=== PATIENT | female | born 1970 ===

== ENCOUNTER → 2024-07-23 17:48 | Outpatient (CLI) | payer SELFPAY | PROVIDERS: PCP Family Medicine; Referring Provider Internal Medicine; Visit Provider Internal Medicine | DX: Z23 Encounter for immunization (principal) | CPT/HCPCS: 90471; 90656 ==

== ENCOUNTER → 2024-09-25 07:00 | Outpatient (CLI) | payer OTHER, SELFPAY ==
[2024-09-25 07:49] LABS: Add Manual Diff / Slide Review NO; Basophils Absolute Auto 0 /uL (0-100); Basophils Percent Auto 0.6 % (0-2); Eosinophils Absolute Auto 100 /uL (0-450); Hematocrit 42.9 % (36-46); Hemoglobin 14.6 g/dL (12.0-16.0); Lymphocytes Absolute Auto 1100 /uL (1100-4500); Mean Corpuscular HGB Conc 33.9 % (30-36); Mean Corpuscular Hemoglobin 31.5 PG (26-34); Mean Corpuscular Volume 92.8 fL (80-100); Monocytes Absolute Auto 300 /uL (0-900); Monocytes Percent Auto 7.7 % (3-14); Neutrophils Absolute Auto 2800 /uL (1500-7000); Neutrophils Percent Auto 64.7 % (50-75); Platelet Count 276 X10^3/uL (150-400); Red Blood Cell Count 4.63 X10^6/uL (4.0-5.2); Red Cell Distribution Width 13.3 % (11.6-14.8); White Blood Cell Count 4.4 X10^3/uL (4.5-11.0)
[2024-09-25 08:28] LABS: Alanine Aminotransferase 27 IU/L (<35); Albumin 4.8 g/dL (3.5-5.0); Albumin Globulin Ratio 1.9 (1.0-2.8); Alkaline Phosphatase 98 U/L (38-126); Aspartate Aminotransferase 26 IU/L (14-36); Bilirubin Total 0.6 mg/dL (0.2-1.3); Blood Urea Nitrogen 17 mg/dL (7-17); Calcium 10.1 mg/dL (8.4-10.2); Carbon Dioxide 27 mmol/L (22-32); Chloride 106 mmol/L (98-107); Cholesterol 295 mg/dL (140-199); Estimated Glomerular Filt Rate 54 mL/min (>60); Globulin 2.5 g/dL (1.7-4.1); Glucose 98 mg/dL (70-100); HDL Cholesterol 71 mg/dL (40-60); HEMOLYSIS < 15 (0-50); LDL Cholesterol Calculated 199 mg/dL (<100); Sodium 139 mmol/L (137-145); Total Protein 7.3 g/dL (6.3-8.2); Triglycerides 123 mg/dL (35-150)
[2024-09-25 08:52] LABS: TSH w/ Reflex to FT4 1.89 uIU/mL (0.47-4.68)
== END ==
PROVIDERS: PCP Family Medicine; Referring Provider Family Medicine; Visit Provider Family Medicine
DX: Z13.6 Encounter for screening for cardiovascular disorders (principal); R63.5 Abnormal weight gain
CPT/HCPCS: 36415; 80053; 80061; 84443; 85025

== ENCOUNTER → 2024-11-06 12:40 | Outpatient (CLI) | payer OTHER, SELFPAY ==
--- NOTE | 2024-11-06 15:53 | DIET.OUTPTC ---
Dietary Outpatient Consultation Note Consultation Date: 11/06/2024 Assessment: 54 y F referred to dietitian for abnormal weight gain. Patient reports would like to review healthy eating and portion sizes for weight management. Recently started statin d/t lipid results in Sep 2024 - chol 295, LDL 199, HDL 71. Will start metformin d/t weight gain. Has had chronic constipation with 2 BMs per week. Takes 2 different laxatives, reports Linzess is better than other medications she has tried, but does not resolve constipation. Has tried increasing fruit intake but no change in stools. Is unsure if when she increased fruit intake how long increased intake was maintained for (i.e 1-2 days over multiple weeks). Has referral to GI. Eats oatmeal+ banana or split soup soup and gets abd cramping and bloating that last day or more. Suspects it is the banana over oatmeal causing cramping. Denies N/V. Per EMR review, last PCP report says pt smoking 5-6 cigarettes per day. Diet recall: B-yogurt (~1c) (with 1/2 cup of grape nuts x2/wk) or cottage cheese or eggs L-deli sandwich with 1 sl angolan cheese on wheat bread with ~1c fruit/veggie (carrots) D-doesn't eat dinner, gets home from work at 6:30 and reports if she eats that late she experiences disruptions in sleep (i.e. waking up in night and being unable to fall asleep) Fluids: 40 oz/day Estimate 8-15 grams fiber/day. Notes she reports being pretty hungry in the evening and a few hours after breakfast. Based on diet recall, dietary intake is not sufficient to meet energy needs nor provide adequate fiber intake to meet 25-28 g/day Activity: rides bike and walks on weekend Ht: 5 ft 7 in Wt: 168 lb 2 oz BMI: 26.3 UBW: 165 lb and 2 oz on 06/29/24 174 lb on 10/22/24 168 lb and 2 oz on 10/25/24 Nutrition Diagnosis: Inadequate fiber intake r/t nutrition related knowledge deficit aeb diet recall with 8-15 g/day Interventions: discussed and provided handouts for the following -Balanced meals in line with myplate method/med eating style, macros, portion sizes, adequate PO intakes -Fiber, types, recc amount, food sources -Lab values -Fluids -Briefly touched on intuitive eating -plan to discuss further along with hunger fullness scale Goals: reports 10 on [place] confidence scale -increasing fiber by +4 grams daily every 1-2 weeks consistently until reaching total fiber intake 25-28 grams/day. Discussed multiple options to start adding to breakfast. Monitor for abd cramping and bloating. -Switching water bottle to 32-36 oz bottle at home and doing 2 per day for 64-72 oz -Having portioned out leftovers around 3p EER: 25-28 g fiber/day, 70-80 oz fluids Monitoring/Evaluations: f/u 4 weeks Electronically Signed by: Griselda Robbins 11/06/24 15:53 Clinical Dietitian [address] [address]
== END ==
PROVIDERS: PCP Family Medicine; Referring Provider Family Medicine
DX: R63.5 Abnormal weight gain (principal); K59.00 Constipation, unspecified; Z71.3 Dietary counseling and surveillance; Z68.26 Body mass index [BMI] 26.0-26.9, adult
CPT/HCPCS: 97802

== ENCOUNTER 2024-11-19 06:54 | Day surgery (SDC) | payer OTHER, SELFPAY ==
[2024-11-19] MEDS: ONDANSETRON 4 MG/2 ML INJ IV (07:35)
[2024-11-19 07:36] VITALS: BP 122/76; PULSE 79; RESP 20; TEMP 36.7; O2SAT 97
[2024-11-19] MEDS: LACTATED RINGERS 1,000 ML 42 ML IV (08:00)
--- NOTE | 2024-11-19 08:09 | PM.HP.IH.1 ---
History of Present Illness History of Present Illness Date Patient Seen: 11/19/24 Time Patient Seen: 08:10 Chief complaint: Screening Colonoscopy Narrative: 54-year-old white female presents for screening colonoscopy. History anxiety, intermittent constipation. ON LICENSE OF [facility] Medical History (Updated 11/19/24 @ 08:11 by Ignacio Waldron MD) Colon cancer screening (11/19/24) Tobacco use disorder Generalized anxiety disorder with panic attacks MDD (major depressive disorder), recurrent severe, without psychosis Surgical History History of hysterectomy History of tonsillectomy History of cholecystectomy History of knee surgery History of shoulder surgery Social History Smoking Status: Current every day smoker alcohol intake: never Meds Home Medications and Allergies Home Medications Medication Instructions Recorded Confirmed Type bupropion HCl 150 mg 24 hr tablet, 300 mg PO QAM 08/30/24 10/31/24 History extended release cetirizine 10 mg capsule (Zyrtec) 10 mg PO DAILY PRN 08/30/24 10/25/24 History cholecalciferol (vitamin D3) 50 50 mcg PO DAILY 08/30/24 10/25/24 History mcg (2,000 unit) capsule escitalopram oxalate 20 mg tablet 20 mg PO DAILY 08/30/24 10/31/24 History (Lexapro) melatonin 10 mg tablet 10 mg PO BEDTIME PRN 08/30/24 10/25/24 History atorvastatin 20 mg tablet 20 mg PO DAILY #30 tabs 09/27/24 10/25/24 Rx quetiapine 300 mg tablet 600 mg (2 x 300 mg) PO DAILY #60 09/27/24 10/31/24 Rx tabs gabapentin 600 mg tablet 1,800 mg (3 x 600 mg) PO DAILY #90 10/01/24 10/31/24 Rx tabs lorazepam 1 mg tablet (Ativan) 1 mg PO DAILY PRN anxiety #30 tabs 10/01/24 10/31/24 Rx lidocaine 5 % topical ointment 1 applic topical TID #35.44 grams 10/22/24 10/25/24 Rx valacyclovir 1 gram tablet 1,000 mg PO Q8H #21 tabs 10/22/24 10/25/24 Rx linaclotide 290 mcg capsule 290 mcg PO DAILY #90 caps 10/25/24 10/25/24 Rx (Linzess) metformin 500 mg tablet,extended 500 mg PO DAILY #30 tabs 10/25/24 10/31/24 Rx release 24 hr nicotine (polacrilex) 2 mg gum 2 mg buccal Q2H PRN nicotine 10/31/24 10/31/24 Rx cravings #120 ea nicotine 14 mg/24 hr daily 1 patch transdermal DAILY #28 ea 10/31/24 10/31/24 Rx transdermal patch sodium,potassium,mag sulfates 17.5 See Rx Instructions PO .COMPLEX 11/09/24 Rx gram-3.13 gram-1.6 gram oral soln #354 mL (Suprep Bowel Prep Kit) Allergies Allergy/AdvReac Type Severity Reaction Status Date / Time ciprofloxacin [From Cipro] Allergy Mild Hives Verified 10/25/24 11:25 Review of Systems Review of Systems ROS: Yes All systems reviewed with the patient and are negative except as otherwise documented Exam Vital Signs (past 8 hours): - 11/19/24 07:36 Temperature 98.0 F Pulse Rate 79 Respiratory Rate 20 Blood Pressure 122/76 Pulse Oximetry 97 Oxygen Delivery Method Room Air Oxygen Delivery Method Room Air Narrative Exam Narrative: Gen: NAD, sitting comfortably in bed, appears well HEENT: Sclera are anicteric, head is normocephalic and atraumatic, trachea is midline. CV: RRR, no JVD Resp: clear to auscultation bilaterally, equal chest wall movement bilaterally Abd: soft, nontender, normoactive bowel sounds Ext: no edema, full range of motion Neuro: Cranial nerves II-XII grossly intact, no focal deficits Skin: No erythema or ecchymosis Assessment & Plan Assessment and plan (1) Colon cancer screening: Status: Acute Assessment & Plan narrative: Patient presents for colonoscopy Risks, benefits, alternatives to colonoscopy explained, including but not limited to bowel perforation or other serious complication requiring surgery at less than 1 in 5000 colonoscopies, abdominal pain, cramping or bleeding and less than 1% of colonoscopies, and the chances that we find a diagnosis that would require further intervention of about 2%. Patient agrees to proceed. Time-Based Coding :: [TOTAL MINUTES] spent with patient and on the chart (including review of chart, obtaining history, exam, reviewing outside data, placing orders, documenting exam and treatment plan, and counseling patient) on [DATE]. 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
--- NOTE | 2024-11-19 08:35 | P.OP.COLON_ITS ---
Operative Date/Time/Diagnoses Date of procedure: 11/19/24 Time of procedure: 08:35 Pre-op diagnosis: Colon screening Post-op diagnosis: same Procedure & Clinicians Study performed: Colonoscopy Same procedure as scheduled: Yes Indications: Colon screening Surgeon: Ignacio Waldron Procedure Notes SCOAP/Timeout: Performed Procedure in detail: Time-out was performed. Mac was induced. Patient was placed in left lateral d ecubitus position. The perineum was inspected without any gross abnormality. Lubricated pediatric colonoscope was inserted and advanced to the cecum. The terminal ileum was intubated. The colonoscope was withdrawn slowly inspecting the circumference of the colon. Very small polyps may have been missed, prep quality was adequate. Retroflexed view of the rectum showed small, non prolapsed nonbleeding internal hemorrhoids. The scope was withdrawn the patient was taken to PACU in good condition. Scope withdrawal time: 7 Sedation minutes: 16 Findings: internal hemorrhoids Specimen(s): none sent Complications: none Post-procedure Recommendations: Colonoscopy in 10 years Follow up: as needed Disposition: PACU
[2024-11-19 08:36] VITALS: BP 104/69; PULSE 75; RESP 16; TEMP 36.2; O2SAT 96
[2024-11-19 08:41] VITALS: BP 105/63; PULSE 71; RESP 14; O2SAT 94
[2024-11-19 08:47] VITALS: BP 103/64; PULSE 74; RESP 15; O2SAT 96
[2024-11-19 08:50] VITALS: BP 108/63; PULSE 68; RESP 16; TEMP 36.6; O2SAT 97
== END 2024-11-19 09:19 | disposition home or self-care (01) ==
PROVIDERS: PCP Family Medicine; Referring Provider Surgery; Visit Provider Surgery
PROC: 0DJD8ZZ Inspection of Lower Intestinal Tract, Via Natural or Artificial Opening Endoscopic (ICD-10-PCS; CPT 45378; principal; 2024-11-19 08:15)
DX: Z12.11 Encounter for screening for malignant neoplasm of colon (principal); K64.8 Other hemorrhoids
CPT/HCPCS: 45378; J2405; J2704

== ENCOUNTER → 2025-02-08 08:43 | Outpatient (CLI) | payer OTHER, SELFPAY ==
[2025-02-08 09:52] LABS: Add Manual Diff / Slide Review NO; Basophils Absolute Auto 0 /uL (0-100); Basophils Percent Auto 0.9 % (0-2); Eosinophils Absolute Auto 100 /uL (0-450); Eosinophils Percent Auto 1.5 % (2-4); Hematocrit 41.4 % (36-46); Hemoglobin 14.4 g/dL (12.0-16.0); Lymphocytes Absolute Auto 1200 /uL (1100-4500); Lymphocytes Percent Auto 27.8 % (25-40); Mean Corpuscular HGB Conc 34.8 % (30-36); Mean Corpuscular Hemoglobin 31.8 PG (26-34); Mean Corpuscular Volume 91.6 fL (80-100); Monocytes Absolute Auto 300 /uL (0-900); Monocytes Percent Auto 6.6 % (3-14); Neutrophils Absolute Auto 2700 /uL (1500-7000); Neutrophils Percent Auto 63.2 % (50-75); Platelet Count 254 X10^3/uL (150-400); Red Blood Cell Count 4.52 X10^6/uL (4.0-5.2); Red Cell Distribution Width 12.9 % (11.6-14.8); White Blood Cell Count 4.3 X10^3/uL (4.5-11.0)
[2025-02-08 09:57] LABS: Appearance Urine UA CLEAR; Bilirubin Urine UA NEGATIVE (NEGATIVE); Color Urine UA YELLOW; Glucose Urine UA NEGATIVE (Negative); Ketones Urine UA NEGATIVE (NEGATIVE); Leukocyte Esterase Urine UA NEGATIVE (NEGATIVE); Nitrite Urine UA NEGATIVE (Negative); Occult Blood Urine UA NEGATIVE (Negative); Protein Urine UA NEGATIVE (Negative); Specific Gravity Urine UA 1.015 (1.000-1.035); Urobilinogen Urine UA 0.2 E.U./dL (0.2)
[2025-02-08 10:01] LABS: pH Urine UA 5.5 (4.5-8.0)
[2025-02-08 10:04] LABS: Bacteria Urine Occasional (0-1); Culture Indicated Urine Cult Not Indicated; RBC Urine 0-1/HPF (0-5/HPF); Squamous Epithelial Cell Urine 0-1 /HPF (0-5/HPF); Urine Volume 10mL (spun); WBC Urine 0-1/HPF (0-5/HPF)
[2025-02-08 10:09] LABS: Creatinine Urine Random 81.41 mg/dL; Hemoglobin A1C% w Est Avg Glu 5.2 % (4.0-6.0)
[2025-02-08 10:14] LABS: Microalbumin Urine Random 0.7 mg/dL (0-1.6)
[2025-02-08 10:33] LABS: Alanine Aminotransferase 16 IU/L (<35); Albumin 4.8 g/dL (3.5-5.0); Albumin Globulin Ratio 2.1 (1.0-2.8); Alkaline Phosphatase 72 U/L (38-126); Aspartate Aminotransferase 23 IU/L (14-36); BUN Creatinine Ratio 15.6 (6-22); Bilirubin Total 0.6 mg/dL (0.2-1.3); Blood Urea Nitrogen 15 mg/dL (7-17); Calcium 10.3 mg/dL (8.4-10.2); Carbon Dioxide 27 mmol/L (22-32); Chloride 105 mmol/L (98-107); Estimated Glomerular Filt Rate > 60 mL/min (>60); Globulin 2.3 g/dL (1.7-4.1); Glucose 87 mg/dL (70-99); HEMOLYSIS < 15 (0-50); Potassium 4.7 mmol/L (3.4-5.1); Sodium 140 mmol/L (137-145); Total Protein 7.1 g/dL (6.3-8.2)
== END ==
PROVIDERS: PCP Family Medicine; Referring Provider Family Medicine; Visit Provider Family Medicine
DX: E78.5 Hyperlipidemia, unspecified (principal); N17.9 Acute kidney failure, unspecified; K59.00 Constipation, unspecified; R63.5 Abnormal weight gain
CPT/HCPCS: 36415; 80053; 81001; 82043; 82570; 83036; 85025

== ENCOUNTER → 2025-02-22 12:26 | Outpatient (CLI) | payer OTHER, SELFPAY ==
--- NOTE | 2025-02-22 12:27 | DI.MG.S_ITS ---
MM screening mammo BI: 02/22/2025. BI-RADS: 2 CLINICAL: 54-year old female for bilateral screening mammogram. Tyrer-Cuzick lifetime risk of 19.4%. No personal or first-degree family history of breast cancer. Current reported family history of breast cancer: maternal grandmother. The patient had prior bilateral breast biopsies. PRIOR EXAMS 08/27/2022. MAMMOGRAPHY TECHNIQUE: 2D and 3D (tomosynthesis) digital mammographic views obtained, with additional images as needed for full coverage. Current study was also evaluated with a Computer Aided Detection (CAD) system. DENSITY C. The breasts are heterogeneously dense, which may obscure small masses. MAMMOGRAPHY FINDINGS Bilateral: Benign-appearing post-surgical changes noted. There are no suspicious masses, calcifications, or other findings in the breast. IMPRESSION: * No evidence of malignancy with benign findings. RECOMMENDATIONS Bilateral * Annual screening mammography. OVERALL ASSESSMENT CATEGORY BI-RADS-2: Benign. [employer] recommends annual screening mammography beginning at age 40 for women with average risk of breast cancer. ELECTRONICALLY SIGNED: Lucia Anderson M.D. on 02/25/2025 at 12:48:24 AM PT Interpreting Station ID: [id number]
== END ==
PROVIDERS: PCP Family Medicine; Referring Provider Family Medicine; Visit Provider Family Medicine
DX: Z12.31 Encounter for screening mammogram for malignant neoplasm of breast (principal); R92.333 Mammographic heterogeneous density, bilateral breasts; Z80.3 Family history of malignant neoplasm of breast
CPT/HCPCS: 77063; 77067

== ENCOUNTER → 2025-03-22 09:48 | Outpatient (CLI) | payer OTHER, SELFPAY ==
[2025-03-22 10:45] LABS: Add Manual Diff / Slide Review NO; Basophils Absolute Auto 0 /uL (0-100); Eosinophils Absolute Auto 100 /uL (0-450); Eosinophils Percent Auto 1.9 % (2-4); Hematocrit 43.1 % (36-46); Hemoglobin 14.7 g/dL (12.0-16.0); Lymphocytes Absolute Auto 1200 /uL (1100-4500); Lymphocytes Percent Auto 30.8 % (25-40); Mean Corpuscular Hemoglobin 31.4 PG (26-34); Mean Corpuscular Volume 92.4 fL (80-100); Monocytes Absolute Auto 200 /uL (0-900); Monocytes Percent Auto 6.2 % (3-14); Neutrophils Absolute Auto 2400 /uL (1500-7000); Neutrophils Percent Auto 60.1 % (50-75); Platelet Count 233 X10^3/uL (150-400); Red Blood Cell Count 4.67 X10^6/uL (4.0-5.2); Red Cell Distribution Width 13.1 % (11.6-14.8)
[2025-03-22 11:12] LABS: Alanine Aminotransferase 13 IU/L (<35); Albumin 4.6 g/dL (3.5-5.0); Albumin Globulin Ratio 1.8 (1.0-2.8); Alkaline Phosphatase 71 U/L (38-126); Aspartate Aminotransferase 22 IU/L (14-36); BUN Creatinine Ratio 15.7 (6-22); Bilirubin Total 0.6 mg/dL (0.2-1.3); Blood Urea Nitrogen 14 mg/dL (7-17); Calcium 9.6 mg/dL (8.4-10.2); Carbon Dioxide 29 mmol/L (22-32); Chloride 104 mmol/L (98-107); Estimated Glomerular Filt Rate > 60 mL/min (>60); Globulin 2.5 g/dL (1.7-4.1); Glucose 91 mg/dL (70-99); HEMOLYSIS < 15 (0-50); Potassium 4.7 mmol/L (3.4-5.1); Sodium 140 mmol/L (137-145); Total Protein 7.1 g/dL (6.3-8.2)
== END ==
PROVIDERS: PCP Family Medicine; Referring Provider Family Medicine; Visit Provider Family Medicine
DX: N17.9 Acute kidney failure, unspecified (principal); R63.5 Abnormal weight gain; D72.819 Decreased white blood cell count, unspecified
CPT/HCPCS: 36415; 80053; 85025

== ENCOUNTER → 2025-08-30 13:02 | Outpatient (CLI) | payer OTHER, SELFPAY ==
--- NOTE | 2025-08-30 13:15 | EKG_ITS ---
[facility] [address] [place] [address] Test Date: 2025-08-30 Pat Name: Rupal Velásquez Department: 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
[2025-08-30 13:23] LABS: Add Manual Diff / Slide Review NO; Hematocrit 43.4 % (36-46); Hemoglobin 14.8 g/dL (12.0-16.0); Lymphocytes Absolute Auto 1500 /uL (1100-4500); Mean Corpuscular HGB Conc 34.2 % (30-36); Mean Corpuscular Hemoglobin 31.1 PG (26-34); Mean Corpuscular Volume 91.1 fL (80-100); Platelet Count 236 X10^3/uL (150-400)
[2025-08-30 13:31] LABS: Hemoglobin A1C% w Est Avg Glu 5.4 % (4.0-6.0)
[2025-08-30 14:03] LABS: Alanine Aminotransferase 14 IU/L (<35); Albumin 5.0 g/dL (3.5-5.0); Albumin Globulin Ratio 2.0 (1.0-2.8); Alkaline Phosphatase 89 U/L (38-126); Blood Urea Nitrogen 15 mg/dL (7-17); Calcium 9.8 mg/dL (8.4-10.2); Carbon Dioxide 25 mmol/L (22-32); Chloride 103 mmol/L (98-107); Cholesterol 166 mg/dL (140-199); Estimated Glomerular Filt Rate > 60 mL/min (>60); Globulin 2.5 g/dL (1.7-4.1); Glucose 91 mg/dL (70-99); HDL Cholesterol 78 mg/dL (40-60); HEMOLYSIS < 15 (0-50); Potassium 4.3 mmol/L (3.4-5.1); Sodium 138 mmol/L (137-145); Total Protein 7.5 g/dL (6.3-8.2); Triglycerides 114 mg/dL (35-150)
[2025-08-30 14:09] LABS: Prealbumin 26.3 mg/dL (17.6-36.0)
[2025-08-30 14:24] LABS: Vitamin D 25 Hydroxy (D3) 55.7 ng/mL (30.0-100.0)
[2025-08-30 14:35] LABS: TSH w/ Reflex to FT4 1.12 uIU/mL (0.47-4.68)
== END ==
PROVIDERS: PCP Family Medicine; Referring Provider Family Medicine; Visit Provider Orthopaedic Surgery Adult Reconstructive Orthopaedic Surgery
DX: E78.5 Hyperlipidemia, unspecified (principal); R63.5 Abnormal weight gain; F41.1 Generalized anxiety disorder; M17.11 Unilateral primary osteoarthritis, right knee; F41.0 Panic disorder [episodic paroxysmal anxiety]
CPT/HCPCS: 36415; 80053; 80061; 82306; 83036; 84134; 84443; 85025; 93005; 93010

== ENCOUNTER → 2025-09-07 08:26 | Outpatient (CLI) | payer OTHER, SELFPAY ==
[2025-09-07 08:48] LABS: UR Morphine/Opiate cutoff 300 Negative (Negative); Ur Specific Gravity Normal (Normal); Urine MDMA Negative (Negative); Urine Methamphetamines Negative (Negative); Urine Tetrahydrocannabinol Negative (Negative); Urine Tricyclic Antidepressant Negative (Negative)
== END ==
PROVIDERS: Orthopaedic Surgery Adult Reconstructive Orthopaedic Surgery; Student in an Organized Health Care Education/Training Program; PCP Family Medicine; Referring Provider Family Medicine; Visit Provider Family Medicine
DX: M17.11 Unilateral primary osteoarthritis, right knee (principal); Z51.81 Encounter for therapeutic drug level monitoring
CPT/HCPCS: 80305; 80307

== ENCOUNTER 2025-09-07 14:09 | Emergency (ER) | payer OTHER, SELFPAY ==
[2025-09-07 14:20] VITALS: BP 141/63; PULSE 93; RESP 18; TEMP 36.2; O2SAT 97; BMI 23.3
--- NOTE | 2025-09-08 07:45 | ED.URI ---
HPI - URI/Sore Throat General Chief Complaint: Upper Respiratory Symptoms Stated Complaint: Coughing up blood Time Seen by Provider: 09/07/25 15:08 Source: patient Mode of arrival: Ambulatory Related Data Home Medications ?Medication ?Instructions ?Recorded ?Confirmed cetirizine 10 mg capsule (Zyrtec) 10 mg PO DAILY PRN 08/30/24 08/30/25 cholecalciferol (vitamin D3) 50 50 mcg PO DAILY 08/30/24 08/30/25 mcg (2,000 unit) capsule melatonin 10 mg tablet 10 mg PO BEDTIME PRN 08/30/24 08/30/25 Previous Rx's ?Medication ?Instructions ?Recorded lidocaine 5 % topical ointment 1 applic topical TID #35.44 grams 10/22/24 metformin 500 mg tablet,extended 1,000 mg (2 x 500 mg) PO DAILY 12/07/24 release 24 hr #180 tabs atorvastatin 20 mg tablet 20 mg PO DAILY #90 tabs 12/24/24 lorazepam 1 mg tablet (Ativan) 1 mg PO DAILY PRN anxiety #30 tabs 03/18/25 azelastine 137 mcg (0.1 %) nasal 2 spray intranasal BID #30 mL 03/22/25 spray naproxen 500 mg tablet 500 mg PO BID #60 tabs 03/22/25 cyclobenzaprine 5 mg tablet 5 mg PO BEDTIME PRN muscle spasm 05/03/25 #20 tabs escitalopram oxalate 20 mg tablet 30 mg (1.5 x 20 mg) PO DAILY #45 07/22/25 (Lexapro) tabs gabapentin 600 mg tablet 1,500 mg (2.5 x 600 mg) PO DAILY 07/22/25 #225 tabs quetiapine 100 mg tablet 100 mg PO BEDTIME #90 tabs 07/22/25 methylphenidate HCl 27 mg 27 mg PO QAM #30 tabs 08/16/25 tablet,extended release 24 hr linaclotide 290 mcg capsule 290 mcg PO DAILY #90 caps 08/20/25 (Linzess) Allergies Allergy/AdvReac Type Severity Reaction Status Date / Time ciprofloxacin (From Cipro) AdvReac Mild Hives Verified 09/07/25 14:20 Patient History Medical History (Updated 09/07/25 @ 15:39 by Merlyn Maddox RN) ADHD (attention deficit hyperactivity disorder), combined type History of ADHD Patellofemoral arthritis of right knee Colon cancer screening (11/19/24) Tobacco use disorder Generalized anxiety disorder with panic attacks MDD (major depressive disorder), recurrent severe, without psychosis Surgical History History of hysterectomy History of tonsillectomy History of cholecystectomy History of knee surgery History of shoulder surgery Social History alcohol intake: never Smoking Status: Current every day smoker tobacco type: cigarettes Exam Initial Vital Signs Initial Vital Signs: Vital Signs Temperature 97.1 F L 09/07/25 14:20 Pulse Rate 93 H 09/07/25 14:20 Respiratory Rate 18 09/07/25 14:20 Blood Pressure 141/63 H 09/07/25 14:20 Pulse Oximetry 97 09/07/25 14:20 Oxygen Delivery Method Room Air 09/07/25 14:20 Discharge Plan Departure Patient Disposition: Left Without Being Seen Clinical Impression: Patient left without being seen, Patient left after triage Prescriptions: No Action melatonin 10 mg tablet 10 mg PO BEDTIME PRN Zyrtec 10 mg capsule 10 mg PO DAILY PRN cholecalciferol (vitamin D3) 50 mcg (2,000 unit) capsule 50 mcg PO DAILY naproxen 500 mg tablet 500 mg PO BID Qty: 60 2RF azelastine 137 mcg (0.1 %) spray,non-aerosol 2 spray intranasal BID Qty: 30 0RF Rx Instructions: administer into each nostril cyclobenzaprine 5 mg tablet 5 mg PO BEDTIME PRN (Reason: muscle spasm) Qty: 20 0RF lidocaine 5 % ointment 1 applic topical TID Qty: 35.44 0RF methylphenidate HCl 27 mg tablet extended release 24hr 27 mg PO QAM Qty: 30 0RF metformin 500 mg tablet extended release 24 hr 1,000 mg PO DAILY Qty: 180 3RF atorvastatin 20 mg tablet 20 mg PO DAILY Qty: 90 3RF lorazepam [Ativan] 1 mg tablet 1 mg PO DAILY PRN (Reason: anxiety) Qty: 30 0RF quetiapine 100 mg tablet 100 mg PO BEDTIME Qty: 90 0RF gabapentin 600 mg tablet 1,500 mg PO DAILY Qty: 225 0RF escitalopram oxalate [Lexapro] 20 mg tablet 30 mg PO DAILY Qty: 45 2RF Linzess 290 mcg capsule 290 mcg PO DAILY Qty: 90 2RF
== END 2025-09-07 15:15 | disposition left against medical advice (07) ==
PROVIDERS: Emergency Provider Family Medicine; PCP Family Medicine
DX: R04.2 Hemoptysis (principal)
CPT/HCPCS: 71046; 80305; 80307; 99281

== ENCOUNTER → 2025-09-07 15:52 | Outpatient (CLI) | payer OTHER, SELFPAY ==
--- NOTE | 2025-09-07 15:54 | DI.RAD.S_ITS ---
PROCEDURE: XR CHEST 2V INDICATIONS: Hemoptysis otherwise asymptomatic TECHNIQUE: 2 views of the chest were acquired. COMPARISON: None. FINDINGS: Surgical changes and devices: None. Lungs and pleura: Lungs are clear. No pleural effusions or pneumothorax. Mediastinum: Mediastinal contours are normal. Heart size is normal. Bones and chest wall: No suspicious bony abnormalities. Soft tissues appear unremarkable. Surgical clips in the left breast. IMPRESSION: No acute cardiopulmonary abnormality is seen. Dictated by: aFrhat Manriquez M.D. on 09/07/2025 at 16:21 Approved by: Farhat Manriquez M.D. on 09/07/2025 at 16:21
== END ==
LOC: RAD 15:53
PROVIDERS: PCP Family Medicine; Referring Provider Chiropractor; Visit Provider Chiropractor
DX: R04.2 Hemoptysis (principal)
CPT/HCPCS: 71046

== ENCOUNTER → 2025-10-08 12:58 | Outpatient (CLI) | payer OTHER, SELFPAY ==
[2025-10-08 14:13] LABS: Estimated Glomerular Filt Rate > 60 mL/min (>60)
--- NOTE | 2025-10-08 14:18 | DI.CT.S_ITS ---
PROCEDURE: CT CHEST W CON INDICATIONS: Hemoptysis TECHNIQUE: After the administration of intravenous contrast, 5 mm thick sections acquired from the pulmonary apices to the posterior costophrenic angles. 1 mm axial lung, 5 mm thick coronal and sagittal reformats and 7 mm axial MIP were acquired. For radiation dose reduction, the following was used: automated exposure control, adjustment of mA and/or kV according to patient size. COMPARISON: [facility], CT, CT ABDOMEN PELVIS WITH CONTRAST, 09/11/2024, 22:44. [facility], CT, CT ANGIO CHEST PE, 09/07/2025, 18:52. FINDINGS: Image quality: Diagnostic. Lower Neck: No enlarged lymph nodes. Thyroid: No thyroid nodules which require sonographic follow up, per consensus guidelines. Axillae: No enlarged lymph nodes. Chest Wall: Unremarkable. Bones: Unremarkable. Lungs and Pleura: No pneumothorax or pleural effusions. No consolidation or suspicious nodules. Chronic mild focal scarring within the lung parenchyma abutting the pleural surface at the medial border of the right middle lobe. This also was present in September 2024. Heart: Heart size is normal. No pericardial effusion. Thoracic Vessels: The aorta and pulmonary arteries demonstrate normal size. Mediastinum and Karen: No enlarged lymph nodes. Esophagus: No wall thickening. No hiatal hernia. Upper Abdomen: Visualized upper abdomen solid organs and bowel loops appear normal. IMPRESSION: Small focus of chronic medial right middle lobe lung scarring, present at least since 2023. No source of hemoptysis is found. Prior mild pneumonia seen 1 month ago within the right upper lobe has resolved. Dictated by: Remy Mcleod M.D. on 10/09/2025 at 14:28 Approved by: Remy Mcleod M.D. on 10/09/2025 at 14:46
== END ==
PROVIDERS: PCP Family Medicine; Referring Provider Family Medicine; Visit Provider Family Medicine
DX: J98.4 Other disorders of lung (principal); R04.2 Hemoptysis; Z87.01 Personal history of pneumonia (recurrent)
CPT/HCPCS: 71260; 82565; Q9967